=== PATIENT | male | born 1970 | race Caucasian/White ===

== ENCOUNTER 2018-02-16 13:14 | Inpatient (IN) | payer MEDICAID, OTHER ==
[2018-02-16 13:58] LABS: ADD MAN DIFF? NO
[2018-02-16 14:00] LABS: WHITE BLOOD COUNT 7.9 10^3/ul (4.8-10.8)
[2018-02-16 14:00] LABS: BASOPHILS % 0.4 % (0.0-2.0); EOSINOPHILS # 0.1 10^3/ul (0.0-0.5); HEMATOCRIT 48.2 % (42.0-52.0); HEMOGLOBIN 16.1 g/dl (14.0-18.0); LYMPHOCYTES # 1.9 10^3/ul (0.8-2.9); LYMPHOCYTES % 23.4 % (15.0-51.0); MEAN CORPUSCULAR HEMOGLOBIN 29.3 pg (29.0-33.0); MEAN CORPUSCULAR HGB CONC 33.4 g/dl (32.0-37.0); MEAN CORPUSCULAR VOLUME 87.8 fl (82.0-101.0); MEAN PLATELET VOLUME 11.7 fl (7.4-10.4); MONOCYTE # 0.5 10^3/ul (0.3-0.9); MONOCYTES % 6.3 % (0.0-11.0); NEUTROPHIL # 5.4 10^3/ul (1.6-7.5); NEUTROPHILS % 68.5 % (39.0-77.0); PLATELET COUNT 193 10^3/UL (140-415); RED BLOOD COUNT 5.49 10^6/ul (4.70-6.10); RED CELL DISTRIBUTION WIDTH 13.2 % (11.5-14.5)
[2018-02-16 14:17] LABS: ANION GAP 10 (8-16); BLOOD UREA NITROGEN 17 mg/dl (7-20); CALCIUM 9.2 mg/dl (8.4-10.2); CARBON DIOXIDE 28 mmol/L (21-31); CHLORIDE 104 mmol/L (97-110); CHOLESTEROL 141 mg/dl (100-200); GLUCOSE 121 mg/dl (70-220); HDL CHOLESTEROL 30 mg/dl (27-67); POTASSIUM 3.3 mmol/L (3.5-5.1); SODIUM 139 mmol/L (135-144)
[2018-02-16 14:18] LABS: CHOL/HDL RATIO 4.7 RATIO; LDL CHOLESTEROL,CALCULATED 35 mg/dl
[2018-02-16 14:20] LABS: INR 0.92; PARTIAL THROMBOPLASTIN TIME 26.7 Sec (25.0-35.0); PROTIME 12.4 Sec (11.9-14.9)
[2018-02-16 14:25] LABS: TRIGLYCERIDES 379 mg/dl (0-149)
[2018-02-16 14:29] LABS: TROPONIN-I < 0.010 ng/ml (0.000-0.120)
[2018-02-16 14:40] LABS: ADD UMIC YES; UR ASCORBIC ACID NEGATIVE (NEGATIVE); UR BACTERIA FEW /HPF (NONE SEEN); UR BILIRUBIN (Dip) NEGATIVE (NEGATIVE); UR BLOOD (Dip) NEGATIVE (NEGATIVE); UR CLARITY CLEAR (CLEAR); UR COLOR YELLOW (YELLOW); UR GLUCOSE (Dip) NEGATIVE (NEGATIVE); UR KETONES (Dip) NEGATIVE (NEGATIVE); UR LEUKOCYTE ESTERASE (Dip) NEGATIVE Leu/ul (NEGATIVE); UR MUCUS FEW /HPF (NONE SEEN); UR NITRITE (Dip) NEGATIVE (NEGATIVE); UR RBC 1 /HPF (0-5); UR SPECIFIC GRAVITY (Dip) 1.013 (1.003-1.030); UR TOTAL PROTEIN (Dip) 3+ mg/dl (NEGATIVE); UR UROBILINOGEN (Dip) NEGATIVE (NEGATIVE); UR WBC 1 /HPF (0-5)
[2018-02-16] MEDS: ASPIRIN 81 MG TAB PO (14:51)
[2018-02-16] MEDS: hydrALAzine 20 MG INJ IV ×3 (14:51→20:52)
[2018-02-16 15:20] LABS: AMPHETAMINE/METHAMPHETAMINE Negative (NEGATIVE); BARBITURATES Negative (NEGATIVE); BENZODIAZEPINES Negative (NEGATIVE); CANNABINOIDS Negative (NEGATIVE); COCAINE Negative (NEGATIVE); OPIATES Negative (NEGATIVE)
[2018-02-16] MEDS ORDERED: ACETAMINOPHEN 325 MG TAB PO ×2 (16:00→18:00)
[2018-02-16] MEDS ORDERED: ONDANSETRON 4 MG INJ IV ×2 (16:00→18:00)
[2018-02-16] MEDS ORDERED: NACL 0.9% 3 ML SYG IV (18:00)
[2018-02-16] MEDS ORDERED: MAGNESIUM HYDROXIDE 30ML CUP PO (18:00)
[2018-02-16] MEDS ORDERED: LORAZEPAM 2 MG INJ IV (18:00)
[2018-02-16] MEDS ORDERED: morphine 2 MG INJ IV (18:00)
[2018-02-16] MEDS ORDERED: NA PHOSPHATE/BIPHOS 133 ML ENEMA PR (18:00)
[2018-02-16] MEDS ORDERED: DOCUSATE SODIUM 100 MG CAP PO (18:00)
[2018-02-16 19:13] LABS: FREE T4 (FREE THYROXINE) 1.34 ng/dl (0.64-1.79)
[2018-02-16] MEDS: HYDROCODONE/APAP (5/325) TAB PO (20:56)
[2018-02-16] MEDS: POTASSIUM CHLORIDE (SR) 20 MEQ TAB PO (22:49)
[2018-02-16] MEDS: METOPROLOL 50 MG TAB PO (22:50)
[2018-02-17] MEDS: PANTOPRAZOLE (EC) 40 MG TAB PO (06:13)
[2018-02-17 06:33] LABS: ADD MAN DIFF? NO
[2018-02-17 06:37] LABS: WHITE BLOOD COUNT 9.2 10^3/ul (4.8-10.8)
[2018-02-17 06:37] LABS: BASOPHILS % 0.3 % (0.0-2.0); EOSINOPHILS # 0.1 10^3/ul (0.0-0.5); EOSINOPHILS % 1.1 % (0.0-7.0); HEMATOCRIT 53.2 % (42.0-52.0); HEMOGLOBIN 17.4 g/dl (14.0-18.0); LYMPHOCYTES % 21.5 % (15.0-51.0); MEAN CORPUSCULAR HEMOGLOBIN 28.8 pg (29.0-33.0); MEAN CORPUSCULAR HGB CONC 32.7 g/dl (32.0-37.0); MEAN CORPUSCULAR VOLUME 87.9 fl (82.0-101.0); MONOCYTE # 0.5 10^3/ul (0.3-0.9); MONOCYTES % 5.6 % (0.0-11.0); NEUTROPHIL # 6.6 10^3/ul (1.6-7.5); NEUTROPHILS % 71.2 % (39.0-77.0); PLATELET COUNT 202 10^3/UL (140-415); RED BLOOD COUNT 6.05 10^6/ul (4.70-6.10); RED CELL DISTRIBUTION WIDTH 13.4 % (11.5-14.5)
[2018-02-17 06:54] LABS: CHOLESTEROL 134 mg/dl (100-200)
[2018-02-17 06:54] LABS: CHOL/HDL RATIO 4.7 RATIO; HDL CHOLESTEROL 28 mg/dl (27-67); LDL CHOLESTEROL,CALCULATED 57 mg/dl; TRIGLYCERIDES 246 mg/dl (0-149)
[2018-02-17 07:03] LABS: ANION GAP 15 (8-16); BLOOD UREA NITROGEN 15 mg/dl (7-20); CALCIUM 9.2 mg/dl (8.4-10.2); CARBON DIOXIDE 27 mmol/L (21-31); CHLORIDE 103 mmol/L (97-110); GLUCOSE 100 mg/dl (70-220); POTASSIUM 3.5 mmol/L (3.5-5.1); SODIUM 141 mmol/L (135-144)
[2018-02-17 07:24] LABS: HEMOGLOBIN A1C 5.8 % (0-5.9)
[2018-02-17] MEDS ORDERED: niCARdipine-NS 0.1MG/ML DRIP 200 ML IV (08:30)
[2018-02-17] MEDS: niCARdipine 25 MG in SOD CHLORIDE 0.9% 250 ML IV ×4 (09:16→18:48)
[2018-02-17] MEDS: METOPROLOL 25 MG TAB PO ×2 (09:27→20:18)
[2018-02-18 05:28] LABS: ADD MAN DIFF? NO
[2018-02-18 05:39] LABS: WHITE BLOOD COUNT 7.5 10^3/ul (4.8-10.8)
[2018-02-18 05:39] LABS: BASOPHILS % 0.1 % (0.0-2.0); EOSINOPHILS # 0.1 10^3/ul (0.0-0.5); EOSINOPHILS % 1.2 % (0.0-7.0); HEMATOCRIT 49.7 % (42.0-52.0); HEMOGLOBIN 16.2 g/dl (14.0-18.0); LYMPHOCYTES # 1.9 10^3/ul (0.8-2.9); LYMPHOCYTES % 24.8 % (15.0-51.0); MEAN CORPUSCULAR HEMOGLOBIN 28.6 pg (29.0-33.0); MEAN CORPUSCULAR HGB CONC 32.6 g/dl (32.0-37.0); MEAN CORPUSCULAR VOLUME 87.8 fl (82.0-101.0); MEAN PLATELET VOLUME 11.7 fl (7.4-10.4); MONOCYTE # 0.4 10^3/ul (0.3-0.9); MONOCYTES % 5.5 % (0.0-11.0); NEUTROPHIL # 5.1 10^3/ul (1.6-7.5); NEUTROPHILS % 68.1 % (39.0-77.0); PLATELET COUNT 201 10^3/UL (140-415); RED BLOOD COUNT 5.66 10^6/ul (4.70-6.10); RED CELL DISTRIBUTION WIDTH 13.4 % (11.5-14.5)
[2018-02-18] MEDS: PANTOPRAZOLE (EC) 40 MG TAB PO (05:59)
[2018-02-18] MEDS: hydrALAzine 20 MG INJ IV (05:59)
[2018-02-18 06:13] LABS: ANION GAP 9 (8-16); BLOOD UREA NITROGEN 19 mg/dl (7-20); CALCIUM 8.8 mg/dl (8.4-10.2); CARBON DIOXIDE 29 mmol/L (21-31); CHLORIDE 103 mmol/L (97-110); CREATININE 1.08 mg/dl (0.61-1.24); GLUCOSE 108 mg/dl (70-220); POTASSIUM 3.9 mmol/L (3.5-5.1); SODIUM 137 mmol/L (135-144)
[2018-02-18] MEDS: METOPROLOL 25 MG TAB PO ×2 (08:16→20:54)
[2018-02-18] MEDS: AMLODIPINE 5 MG TAB PO (08:16)
[2018-02-18] MEDS: niCARdipine 25 MG in SOD CHLORIDE 0.9% 250 ML IV ×3 (08:18→17:37)
[2018-02-18 19:18] LABS: TROPONIN-I < 0.010 ng/ml (0.000-0.120)
[2018-02-18] MEDS: SILVER SULFADIAZINE 1% 25 GM CR TOP (20:54)
[2018-02-19 01:17] LABS: TROPONIN-I 0.014 ng/ml (0.000-0.120)
[2018-02-19] MEDS: niCARdipine 25 MG in SOD CHLORIDE 0.9% 250 ML IV ×3 (01:34→16:11)
[2018-02-19 05:29] LABS: ADD MAN DIFF? NO
[2018-02-19 05:31] LABS: BASOPHILS % 0.2 % (0.0-2.0); EOSINOPHILS # 0.1 10^3/ul (0.0-0.5); HEMATOCRIT 52.2 % (42.0-52.0); HEMOGLOBIN 17.1 g/dl (14.0-18.0); LYMPHOCYTES # 1.9 10^3/ul (0.8-2.9); LYMPHOCYTES % 22.5 % (15.0-51.0); MEAN CORPUSCULAR HEMOGLOBIN 28.8 pg (29.0-33.0); MEAN CORPUSCULAR HGB CONC 32.8 g/dl (32.0-37.0); MEAN PLATELET VOLUME 11.5 fl (7.4-10.4); MONOCYTE # 0.5 10^3/ul (0.3-0.9); MONOCYTES % 6.3 % (0.0-11.0); NEUTROPHIL # 5.8 10^3/ul (1.6-7.5); NEUTROPHILS % 69.6 % (39.0-77.0); PLATELET COUNT 212 10^3/UL (140-415); RED BLOOD COUNT 5.93 10^6/ul (4.70-6.10); RED CELL DISTRIBUTION WIDTH 13.1 % (11.5-14.5)
[2018-02-19 05:31] LABS: WHITE BLOOD COUNT 8.4 10^3/ul (4.8-10.8)
[2018-02-19] MEDS: PANTOPRAZOLE (EC) 40 MG TAB PO (05:36)
[2018-02-19 05:58] LABS: ANION GAP 11 (8-16); BLOOD UREA NITROGEN 15 mg/dl (7-20); CALCIUM 8.9 mg/dl (8.4-10.2); CARBON DIOXIDE 28 mmol/L (21-31); CHLORIDE 104 mmol/L (97-110); CREATININE 0.95 mg/dl (0.61-1.24); GLUCOSE 104 mg/dl (70-220); POTASSIUM 3.8 mmol/L (3.5-5.1); SODIUM 139 mmol/L (135-144)
[2018-02-19] MEDS: METOPROLOL 25 MG TAB PO (08:42)
[2018-02-19] MEDS: AMLODIPINE 5 MG TAB PO (08:42)
[2018-02-19] MEDS: SILVER SULFADIAZINE 1% 25 GM CR TOP ×2 (08:43→21:25)
[2018-02-19] MEDS: METOPROLOL 50 MG TAB PO ×2 (10:09→21:25)
[2018-02-19] MEDS: AMLODIPINE 10 MG TAB PO (10:10)
[2018-02-19] MEDS: BENAZEPRIL 20 MG TAB PO (21:25)
[2018-02-20 05:12] LABS: ADD MAN DIFF? NO
[2018-02-20 05:22] LABS: WHITE BLOOD COUNT 7.8 10^3/ul (4.8-10.8)
[2018-02-20 05:22] LABS: BASOPHILS % 0.3 % (0.0-2.0); EOSINOPHILS # 0.1 10^3/ul (0.0-0.5); EOSINOPHILS % 1.4 % (0.0-7.0); HEMATOCRIT 51.5 % (42.0-52.0); HEMOGLOBIN 16.9 g/dl (14.0-18.0); LYMPHOCYTES # 2.1 10^3/ul (0.8-2.9); LYMPHOCYTES % 26.5 % (15.0-51.0); MEAN CORPUSCULAR HEMOGLOBIN 28.5 pg (29.0-33.0); MEAN CORPUSCULAR HGB CONC 32.8 g/dl (32.0-37.0); MEAN CORPUSCULAR VOLUME 86.8 fl (82.0-101.0); MEAN PLATELET VOLUME 11.7 fl (7.4-10.4); MONOCYTE # 0.5 10^3/ul (0.3-0.9); MONOCYTES % 6.5 % (0.0-11.0); NEUTROPHIL # 5.1 10^3/ul (1.6-7.5); PLATELET COUNT 209 10^3/UL (140-415); RED BLOOD COUNT 5.93 10^6/ul (4.70-6.10); RED CELL DISTRIBUTION WIDTH 13.4 % (11.5-14.5)
[2018-02-20] MEDS: PANTOPRAZOLE (EC) 40 MG TAB PO (05:27)
[2018-02-20 05:45] LABS: ANION GAP 10 (8-16); BLOOD UREA NITROGEN 17 mg/dl (7-20); CALCIUM 9.1 mg/dl (8.4-10.2); CARBON DIOXIDE 28 mmol/L (21-31); CHLORIDE 105 mmol/L (97-110); CREATININE 0.95 mg/dl (0.61-1.24); GLUCOSE 95 mg/dl (70-220); SODIUM 139 mmol/L (135-144)
[2018-02-20] MEDS: AMLODIPINE 10 MG TAB PO (08:36)
[2018-02-20] MEDS: METOPROLOL 50 MG TAB PO (08:36)
[2018-02-20] MEDS: SILVER SULFADIAZINE 1% 25 GM CR TOP (08:36)
[2018-02-20] MEDS: BENAZEPRIL 20 MG TAB PO ×2 (08:37→10:28)
[2018-02-20] MEDS ORDERED: BENAZEPRIL 20 MG TAB PO (21:00)
== END 2018-02-20 12:00 | disposition home or self-care (01) | DRG 305 ==
LOC: ICU 21:32 → E/R 13:14 → TEL 15:37
DX: I16.0 Hypertensive urgency (principal); E78.5 Hyperlipidemia, unspecified; R09.02 Hypoxemia; Z91.14 Patient's other noncompliance with medication regimen; F17.200 Nicotine dependence, unspecified, uncomplicated; I10 Essential (primary) hypertension; R20.0 Anesthesia of skin; R42 Dizziness and giddiness; E66.9 Obesity, unspecified; Z68.34 Body mass index [BMI] 34.0-34.9, adult
CPT/HCPCS: 36415; 70450; 70551; 71045; 80048; 80061; 80307; 81001; 83036; 84439; 84443; 84484; 85025; 85610; 85730; 87081; 93005; 93306; 93880; 94660; 96374; 99285-25